=== PATIENT | male | born 1930 | race Caucasian/White ===

== ENCOUNTER → 2018-06-24 | Outpatient (CLI) | payer OTHER, BC | END | disposition home or self-care (01) | LOC: RD 11:40 | DX: S79.911A Unspecified injury of right hip, initial encounter (principal); W01.0XXA Fall on same level from slipping, tripping and stumbling without subsequent striking against object, initial encounter; Y92.9 Unspecified place or not applicable ==

== ENCOUNTER → 2018-06-29 | Outpatient (CLI) | payer OTHER, BC | END | disposition home or self-care (01) | LOC: CT 08:55 | PROC: BQ20ZZZ Computerized Tomography (CT Scan) of Right Hip (ICD-10-PCS; principal; 2018-06-29) | DX: S72.001D Fracture of unspecified part of neck of right femur, subsequent encounter for closed fracture with routine healing (principal); X58.XXXD Exposure to other specified factors, subsequent encounter ==

== ENCOUNTER → 2018-07-08 | Outpatient (CLI) | payer OTHER, BC ==
[~2018-07-08] MED LIST: EPZICOM1 TAB PO; FERROUS GLUCON324 M1 PO; FINASTERIDE5 M1 PO; FISH OIL 500 M1 EAC1 PO; FLOMAX0.4 MG PO; KLOR-CON M2020 MEQ PO; LACTOSE PO; LASIX40 MG PO; LOVASTATIN40 MG; MULTI-VITAMINS1 TAB PO; PENTOXIFYL XR400 M1 PO; VITAMIN B121000 MCG PO; [UNRECOGNIZED DRUG - OTHER] PO
== END | disposition home or self-care (01) ==
LOC: RD 10:42
DX: S72.001D Fracture of unspecified part of neck of right femur, subsequent encounter for closed fracture with routine healing (principal); X58.XXXD Exposure to other specified factors, subsequent encounter

== ENCOUNTER 2018-07-09 09:49 | Inpatient (IN) | payer OTHER, BC ==
[~2018-07-09] VITALS: Ht 177.8 cm; Wt 77.1 kg
[2018-07-09] MEDS ORDERED: LASIX40 MG PO (10:17)
[2018-07-09] MEDS ORDERED: FERROUS GLUCON324 M1 PO (10:18)
[2018-07-09] MEDS ORDERED: VITAMIN B121000 MCG PO (10:18)
[2018-07-09] MEDS ORDERED: LACTOSE PO (10:19)
[2018-07-09] MEDS ORDERED: [UNRECOGNIZED DRUG - OTHER] PO (10:21)
[2018-07-09] MEDS ORDERED: MULTI-VITAMINS1 TAB PO (10:22)
[2018-07-09] MEDS ORDERED: LOVASTATIN40 MG (10:22)
[2018-07-09] MEDS ORDERED: FISH OIL 500 M1 EAC1 PO (10:22)
[2018-07-09] MEDS ORDERED: FLOMAX0.4 MG PO (10:23)
[2018-07-09] MEDS ORDERED: KLOR-CON M2020 MEQ PO (10:23)
[2018-07-09] MEDS ORDERED: PENTOXIFYL XR400 M1 PO (10:23)
[2018-07-09 10:24] LABS: BASOPHIL % 0.4 % (0-2); PLATELET COUNT 197 x10^3mcL (130-400)
[2018-07-09] MEDS ORDERED: EPZICOM1 TAB PO (10:24)
[2018-07-09] MEDS ORDERED: FINASTERIDE5 M1 PO (10:24)
[2018-07-09 10:27] LABS: RED CELL DISTRIBUTION WIDTH 16.2 % (11.5-14.5)
[2018-07-09 10:31] LABS: CALCIUM 8.5 mg/dL (8.5-10.1); CARBON DIOXIDE 30.5 mmol/L (21-32); CHLORIDE SERUM 97 mmol/L (98-107); CREATININE SERUM 0.8 mg/dL (0.7-1.3); GLUCOSE SERUM 100 mg/dL (74-106); POTASSIUM SERUM 3.9 mmol/L (3.5-5.1); SODIUM SERUM 131 mmol/L (136-145)
[2018-07-09 10:36] LABS: ALKALINE PHOSPHATASE 105 U/L (46-116); ALT/SGPT 26 U/L (16-63); AST/SGOT 21 U/L (15-37); BILIRUBIN TOTAL 0.82 mg/dL (0.20-1.00); TOTAL PROTEIN, SERUM 7.2 g/dL (6.4-8.2)
[2018-07-09 10:41] LABS: ALBUMIN 3.1 g/dL (3.4-5.0)
[2018-07-09 13:16] LABS: T3 TOTAL 0.84 ng/mL
[2018-07-09 13:20] VITALS: BP 143/77
[2018-07-09 14:46] LABS: microscopic required? YES; urine erythrocyte TRACE (NEGATIVE)
[2018-07-09 15:00] LABS: AMPHETAMINE QUAL UR NONE DETECTED (See below)
[2018-07-09 15:10] LABS: FREE T4 1.12 ng/dL (0.76-1.46); FREE THYROXINE INDEX 2.6 ug/dL (1.4-4.5)
[2018-07-09 16:50] LABS: MAGNESIUM 2.2 mg/dL (1.8-2.4); PHOSPHOROUS 4.2 mg/dL (2.5-4.9)
[2018-07-09 17:42] VITALS: BP 159/69
[2018-07-09 17:43] VITALS: BP 116/69
[2018-07-09 18:00] LABS: IRON 41 ug/dL (65-170)
[2018-07-09 18:01] LABS: TOTAL IRON BINDING CAPACITY 208 ug/dL (250-450)
[2018-07-09 20:21] VITALS: BP 115/62
[2018-07-10 05:34] VITALS: BP 106/70
[2018-07-10 06:45] VITALS: BP 111/63
[2018-07-10 07:14] LABS: CALCIUM 8.7 mg/dL (8.5-10.1); CARBON DIOXIDE 31.2 mmol/L (21-32); CHLORIDE SERUM 104 mmol/L (98-107); CREATININE SERUM 0.8 mg/dL (0.7-1.3); GLUCOSE SERUM 85 mg/dL (74-106); POTASSIUM SERUM 4.7 mmol/L (3.5-5.1); SODIUM SERUM 141 mmol/L (136-145)
[2018-07-10 07:23] LABS: BASOPHIL % 0.5 % (0-2); PLATELET COUNT 178 x10^3mcL (130-400)
[2018-07-10 17:02] VITALS: BP 123/67
[2018-07-10 17:06] VITALS: BP 99/59
[2018-07-10 20:58] VITALS: BP 114/72
[2018-07-11 05:45] LABS: BASOPHIL % 0.2 % (0-2); PLATELET COUNT 181 x10^3mcL (130-400)
[2018-07-11 05:50] LABS: RED CELL DISTRIBUTION WIDTH 14.8 % (11.5-14.5)
[2018-07-11 05:55] LABS: CALCIUM 8.4 mg/dL (8.5-10.1); CHLORIDE SERUM 99 mmol/L (98-107); CREATININE SERUM 0.8 mg/dL (0.7-1.3); GLUCOSE SERUM 94 mg/dL (74-106); POTASSIUM SERUM 4.3 mmol/L (3.5-5.1); SODIUM SERUM 133 mmol/L (136-145)
[2018-07-11 06:13] VITALS: BP 125/70
[2018-07-11 09:22] VITALS: BP 129/64
[2018-07-11 18:17] VITALS: BP 135/77
[2018-07-11 21:07] VITALS: BP 131/77
[2018-07-12 06:01] VITALS: BP 131/75
[2018-07-12 06:20] LABS: CALCIUM 8.6 mg/dL (8.5-10.1); CARBON DIOXIDE 32.4 mmol/L (21-32); CHLORIDE SERUM 101 mmol/L (98-107); CREATININE SERUM 0.8 mg/dL (0.7-1.3); GLUCOSE SERUM 104 mg/dL (74-106); MAGNESIUM 1.9 mg/dL (1.8-2.4); PHOSPHOROUS 3.9 mg/dL (2.5-4.9); POTASSIUM SERUM 3.7 mmol/L (3.5-5.1); SODIUM SERUM 139 mmol/L (136-145)
[2018-07-12 06:24] LABS: BASOPHIL % 0.2 % (0-2); PLATELET COUNT 175 x10^3mcL (130-400)
[2018-07-12 06:48] LABS: RED CELL DISTRIBUTION WIDTH 14.6 % (11.5-14.5)
[2018-07-12 09:29] VITALS: BP 122/80
[2018-07-12] MEDS ORDERED: NITROFURANTOIN100 MG PO (10:44)
[2018-07-12 13:35] VITALS: BP 109/58
[2018-07-13 16:37] VITALS: Ht 177.8 cm; Wt 77.1 kg
== END 2018-07-12 14:20 | disposition home health service (06) | DRG 481 ==
LOC: ED 09:49 → MU 11:06 → DU 11:06 → MU 12:22
PROVIDERS: Emergency Medicine; Internal Medicine; Neuromusculoskeletal Medicine, Sports Medicine
PROC: 0QS604Z Reposition Right Upper Femur with Internal Fixation Device, Open Approach (ICD-10-PCS; principal; 2018-07-10 08:30)
DX: S72.111A Displaced fracture of greater trochanter of right femur, initial encounter for closed fracture (principal); E87.1 Hypo-osmolality and hyponatremia; N39.0 Urinary tract infection, site not specified; E44.0 Moderate protein-calorie malnutrition; B96.20 Unspecified Escherichia coli [E. coli] as the cause of diseases classified elsewhere; I48.91 Unspecified atrial fibrillation; I10 Essential (primary) hypertension; D53.9 Nutritional anemia, unspecified; Z68.25 Body mass index [BMI] 25.0-25.9, adult; Z66 Do not resuscitate; Z16.12 Extended spectrum beta lactamase (ESBL) resistance; W01.0XXA Fall on same level from slipping, tripping and stumbling without subsequent striking against object, initial encounter; Y93.H9 Activity, other involving exterior property and land maintenance, building and construction; Y92.9 Unspecified place or not applicable
CPT/HCPCS: 83880; 84439; 90658; 94150; 97110-GP; 97116-GP; 97530-GP; C1713; J0690; J0696; J1170; J1644; J2175; J2250; J3010; J3490; J7030; J7050; Q0092